=== PATIENT | female | born 1965 | race Caucasian/White ===

== ENCOUNTER 2019-07-16 20:59 | Emergency (ER) | payer BC ==
[~2019-07-16] VITALS: Ht 165.1 cm; Wt 100.0 kg
[~2019-07-16 20:59] MED LIST: ARIP2TAB3 PO; ATOR40TA PO; BUPR1PAT2 TD; CRAN450T9 PO; DIAZ10TA PO; DOCU100C40 PO; FEXO180T94 PO; MELO-83 PO; MULT-1085 PO; OMEG-15 PO; OXYC15TA88 PO; PAX20T PO; TIZA4CAP6 PO
[2019-07-16] MEDS ORDERED: normal saline 1000ML IV soln IVB ONE (22:20)
[2019-07-16 22:53] LABS: BASOPHILS # (AUTO) 0.1 X10'3 (0-0.2); EOSINOPHILS # (AUTO) 0.2 X10'3 (0-0.9); EOSINOPHILS % (AUTO) 1.9 % (0-6); HEMATOCRIT 43.7 % (35.0-45.0); HEMOGLOBIN 15.1 g/dl (12.0-16.0); LYMPHOCYTES # (AUTO) 2.7 X10'3 (1.1-4.8); LYMPHOCYTES % (AUTO) 29.6 % (21-51); MEAN CORPUSCULAR HEMOGLOBIN 29.6 PG (27.0-31.0); MEAN CORPUSCULAR HGB CONC 34.5 g/dL (33.0-36.5); MEAN CORPUSCULAR VOLUME 85.8 FL (78-98); MEAN PLATELET VOLUME 9.7 FL (7.4-10.4); MONOCYTES # (AUTO) 0.7 X10'3 (0-0.9); MONOCYTES % (AUTO) 7.3 % (2-12); NEUTROPHILS # (AUTO) 5.5 X10'3 (1.8-7.7); NEUTROPHILS % (AUTO) 60.2 % (42-75); PLATELET COUNT 214 X10'3 (140-440); RED CELL DISTRIBUTION WIDTH 13.2 % (11.5-14.5); WHITE BLOOD COUNT 9.1 X10'3 (4.5-11.0)
[2019-07-16 23:08] LABS: ALANINE AMINOTRANSFERASE 44 U/L (12-78); ALBUMIN 3.8 G/DL (3.4-5.0); ALBUMIN/GLOBULIN RATIO 1.1 (1.1-1.5); ALKALINE PHOSPHATASE 182 IU/L (46-116); ANION GAP 7 (8-16); ASPARTATE AMINO TRANSFERASE 20 U/L (10-37); BILIRUBIN,TOTAL 0.4 MG/DL (0.1-1.0); BLOOD UREA NITROGEN 18 MG/DL (7-18); BUN/CREATININE RATIO 14.2 (6.6-38.0); CALCIUM 9.1 MG/DL (8.5-10.1); CHLORIDE 102 MMOL/L (99-107); CREATININE 1.27 MG/DL (0.40-0.90); GLUCOSE 330 MG/DL (70-104); SODIUM 140 MMOL/L (135-145); TOTAL PROTEIN 7.4 G/DL (6.4-8.2); eGFR 44 ML/MIN
[2019-07-16] MEDS ORDERED: insulin regular, human 10 units/0.1 ml syringe SQ ONE (23:45)
[2019-07-17 01:07] VITALS: BP 123/84
== END 2019-07-17 01:09 | disposition home or self-care (01) ==
LOC: ER 20:59
DX: E11.65 Type 2 diabetes mellitus with hyperglycemia (principal); I10 Essential (primary) hypertension; Z98.890 Other specified postprocedural states; Z88.0 Allergy status to penicillin; Z79.899 Other long term (current) drug therapy
CPT/HCPCS: 36415; 80053; 82948; 85025; 96360; 96372; 99283; J1815; J7030

== ENCOUNTER 2022-01-15 11:14 | Emergency (ER) | payer BC ==
[~2022-01-15] VITALS: Ht 165.1 cm; Wt 101.8 kg
[~2022-01-15 11:14] MED LIST changes: +OXYC15TA PO; -OXYC15TA88 PO
[2022-01-15] MEDS ORDERED: potassium chloride 10mEq ER tablet PO ONE (13:00)
[2022-01-15] MEDS ORDERED: furosemide 20MG tablet PO ONE (13:00)
[2022-01-15 13:34] VITALS: BP 120/83
== END 2022-01-15 13:37 | disposition home or self-care (01) ==
LOC: ER 11:15
DX: R22.43 Localized swelling, mass and lump, lower limb, bilateral (principal); I10 Essential (primary) hypertension; Z88.0 Allergy status to penicillin; Z88.2 Allergy status to sulfonamides; Z88.8 Allergy status to other drugs, medicaments and biological substances
CPT/HCPCS: 99283

== ENCOUNTER 2023-03-26 16:19 | Emergency (ER) | payer BC ==
[~2023-03-26] VITALS: Ht 165.1 cm; Wt 100.0 kg
[~2023-03-26 16:19] MED LIST changes: +DIAZ-546 PO; -DIAZ10TA PO
[2023-03-26] MEDS ORDERED: DEC4T PO (17:49)
[2023-03-26 18:15] VITALS: BP 158/96; PULSE 96; RESP 16; TEMP 98.8; O2SAT 100
--- NOTE | 2023-03-26 19:39 | NUR ---
AGREE W ITH LVNS GENERAL ASSESSMENT. PT IN STABLE CONDITION.
== END 2023-03-26 19:40 | disposition home or self-care (01) ==
LOC: ER 16:21
DX: M51.26 Other intervertebral disc displacement, lumbar region (principal); I10 Essential (primary) hypertension; Z88.0 Allergy status to penicillin; Z88.2 Allergy status to sulfonamides; Z88.8 Allergy status to other drugs, medicaments and biological substances; Z79.899 Other long term (current) drug therapy
CPT/HCPCS: 99283

== ENCOUNTER 2023-04-10 10:46 | Emergency (ER) | payer BC ==
[~2023-04-10] VITALS: Ht 165.1 cm; Wt 100.8 kg
[~2023-04-10 10:46] MED LIST changes: +DEC4T PO
[2023-04-10] MEDS ORDERED: PRED20TA PO (13:04)
[2023-04-10] MEDS ORDERED: ONDA4TAB12 PO (13:04)
[2023-04-10 13:08] VITALS: BP 134/91; PULSE 74; O2SAT 100
[2023-04-10] MEDS ORDERED: ketorolac trometh inj. 60 MG/2 ML VIAL IM ONE (13:10)
[2023-04-10 13:32] VITALS: TEMP 98.1
[2023-04-10 13:41] VITALS: RESP 15
--- NOTE | 2023-04-10 16:17 | NUR ---
hourly rounding charting undone d/t charted on wrong pt.
== END 2023-04-10 13:49 | disposition home or self-care (01) ==
LOC: ER 10:47
DX: M54.16 Radiculopathy, lumbar region (principal); I10 Essential (primary) hypertension; Z88.0 Allergy status to penicillin; Z88.2 Allergy status to sulfonamides; Z88.8 Allergy status to other drugs, medicaments and biological substances; Z79.899 Other long term (current) drug therapy
CPT/HCPCS: 96372; 99283; J1885